=== PATIENT | male | born 1970 | race Caucasian/White ===

== ENCOUNTER 2017-09-13 23:21 | Emergency (ER) | payer MEDICAID, OTHER ==
[~2017-09-13] VITALS: Ht 165.1 cm; Wt 85.7 kg
[~2017-09-13 23:21] MED LIST: ATARAX; MOTRIN; PREDNISONE; SOMA; VICODIN
[2017-09-13 23:25] VITALS: BP 153/90
[2017-09-13] MEDS ORDERED: METOCLOPRAMIDE 10 MG/2 ML INJ VIAL IVP ONE (23:40)
[2017-09-13] MEDS ORDERED: NACL 0.9% 1,000 ML IV ONE (23:40)
[2017-09-13] MEDS ORDERED: KETOROLAC 30 MG/ML VIAL IVP ONE (23:40)
[2017-09-14 00:03] LABS: BASOPHILS # (AUTO) 0.1 K/uL (0.00-0.22); BASOPHILS % (AUTO) 1.2 % (0.0-2.0); EOSINOPHILS # (AUTO) 0.3 K/uL (0-0.4); EOSINOPHILS % (AUTO) 2.5 % (0.0-4.0); HEMATOCRIT 45.6 % (36-52); HEMOGLOBIN 15.9 g/dL (12.0-18.0); LYMPHOCYTES % (AUTO) 36.1 % (20.5-51.1); MEAN CORPUSCULAR HEMOGLOBIN 31 pg (27-31); MEAN CORPUSCULAR HGB CONC 35 g/dL (33-37); MEAN CORPUSCULAR VOLUME 88.9 fL (80-94); MONOCYTES # (AUTO) 0.8 K/uL (0.8-1.0); MONOCYTES % (AUTO) 7.2 % (1.7-9.3); NEUTROPHILS # (AUTO) 5.8 K/uL (1.8-7.7); PLATELET COUNT (AUTO) 261 K/uL (140-450); RED BLOOD CELL COUNT(AUTO) 5.13 MIL/uL (4.20-6.10); RED CELL DISTRIBUTION WIDTH 13.2 % (11.6-13.7)
[2017-09-14 00:12] LABS: ANION GAP 17.6 (8-16); CARBON DIOXIDE 26.2 mmol/L (21-32); POTASSIUM 3.8 mmol/L (3.5-5.1)
[2017-09-14 00:13] LABS: APPEARANCE,URINE CLEAR (CLEAR); BILIRUBIN,URINE NEGATIVE (NEGATIVE); BLOOD, URINE NEGATIVE (NEGATIVE); COLOR,URINE YELLOW (YELLOW); LEUKOCYTE ESTERASE ,URINE NEGATIVE (NEGATIVE); NITRITE, URINE NEGATIVE (NEGATIVE); PH,URINE 6.5 (5.0-9.0); UGLUCOSE NEGATIVE (NEGATIVE)
[2017-09-14 00:18] LABS: ALBUMIN 3.8 g/dL (3.4-5.0); TOTAL BILIRUBIN 0.2 mg/dL (0.0-1.0)
[2017-09-14] MEDS ORDERED: MORPHINE SULFATE 4 MG/ML SYR IVP ONE (00:40)
[2017-09-14 01:59] VITALS: BP 100/52
== END 2017-09-14 01:58 | disposition home or self-care (01) ==
LOC: MED 23:21
DX: K80.20 Calculus of gallbladder without cholecystitis without obstruction (principal); R11.2 Nausea with vomiting, unspecified; K76.89 Other specified diseases of liver; Z79.899 Other long term (current) drug therapy
CPT/HCPCS: 36415; 74176; 76705; 80053; 81003; 83690; 85025; 96361; 96374; 96375; 99285; J1885; J2270; J2765; Q0092

== ENCOUNTER 2017-09-16 00:02 | Emergency (ER) | payer OTHER ==
[~2017-09-16] VITALS: Ht 165.1 cm; Wt 82.7 kg
[2017-09-16 00:05] VITALS: BP 144/92
--- NOTE | 2017-09-16 01:34 | NUR ---
PATIENT LEFT WITHOUT BEING SEEN BY DR. BELLO. NO FURTHER CARE PROVIDED FOR PATIENT.
== END 2017-09-16 01:34 | disposition left against medical advice (07) ==
LOC: MED 00:02
DX: R10.31 Right lower quadrant pain (principal); Z53.21 Procedure and treatment not carried out due to patient leaving prior to being seen by health care provider

== ENCOUNTER 2017-09-18 20:36 | Emergency (ER) | payer OTHER ==
[~2017-09-18] VITALS: Ht 165.1 cm; Wt 82.1 kg
[2017-09-18 20:51] VITALS: BP 145/71
--- NOTE | 2017-09-18 20:54 | NUR ---
TO LOBBY A/W BED, WILLIE HERNANDEZ NOTED
--- NOTE | 2017-09-18 21:13 | NUR ---
PT TAKEN TO BED 3
--- NOTE | 2017-09-18 21:40 | NUR ---
47/M CAME IN ED WITH FAMILY/FRIEND, C/O 11/03 R ABD PAIN, RADIATING THROUGHOUT ABD, X1 WEEK. PT REPORTS N/V. PT REPORTS FEVER, HIGHEST 101 DURING THE WEEK, AFEBRILE AT THIS TIME. PT WAS SEEN 6 DAYS AGO, HAD CT SCAN AND US, WAS FOUND TO HAVE GALLSTONES. PT REPORTS TAKING ADVIL WITH LITTLE RELIEF. HX GALLSTONE, SEIZURE (LAST 5 YEARS AGO), RX DILANTIN. ABD ROUND, BS ACTIVE X4, SOFT, TENDERNESS TO PALPATION; PATIENT POSITIONED FOR COMFORT; HOB ELEVATED; BEDRAILS UP X2; BED DOWN.
[2017-09-18 21:51] LABS: APPEARANCE,URINE CLEAR (CLEAR); BILIRUBIN,URINE NEGATIVE (NEGATIVE); BLOOD, URINE NEGATIVE (NEGATIVE); COLOR,URINE YELLOW (YELLOW); LEUKOCYTE ESTERASE ,URINE NEGATIVE (NEGATIVE); NITRITE, URINE NEGATIVE (NEGATIVE); PH,URINE 5.5 (5.0-9.0); UGLUCOSE NEGATIVE (NEGATIVE)
[2017-09-18] MEDS ORDERED: MORPHINE SULFATE 4 MG/ML SYR IVP ONE (22:00)
[2017-09-18] MEDS ORDERED: METOCLOPRAMIDE 10 MG/2 ML INJ VIAL IVP ONE (22:00)
[2017-09-18] MEDS ORDERED: NACL 0.9% 1,000 ML IV ONE (22:00)
--- NOTE | 2017-09-18 22:15 | NUR ---
US AT BEDSIDE
[2017-09-18 22:29] LABS: BASOPHILS # (AUTO) 0.1 K/uL (0.00-0.22); BASOPHILS % (AUTO) 0.8 % (0.0-2.0); EOSINOPHILS # (AUTO) 0.3 K/uL (0-0.4); EOSINOPHILS % (AUTO) 3.2 % (0.0-4.0); HEMATOCRIT 43.2 % (36-52); HEMOGLOBIN 14.8 g/dL (12.0-18.0); LYMPHOCYTES % (AUTO) 48.6 % (20.5-51.1); MEAN CORPUSCULAR HEMOGLOBIN 31 pg (27-31); MEAN CORPUSCULAR HGB CONC 34 g/dL (33-37); MEAN CORPUSCULAR VOLUME 90.8 fL (80-94); MONOCYTES # (AUTO) 0.8 K/uL (0.8-1.0); MONOCYTES % (AUTO) 8.2 % (1.7-9.3); NEUTROPHILS % (AUTO) 39.2 % (42.2-75.2); PLATELET COUNT (AUTO) 231 K/uL (140-450); RED BLOOD CELL COUNT(AUTO) 4.76 MIL/uL (4.20-6.10); RED CELL DISTRIBUTION WIDTH 13.5 % (11.6-13.7); WHITE BLOOD COUNT (AUTO) 10.2 K/uL (4.8-10.8)
[2017-09-18 22:38] LABS: ANION GAP 14.4 (8-16); POTASSIUM 3.4 mmol/L (3.5-5.1)
[2017-09-18 22:44] LABS: ALBUMIN 3.7 g/dL (3.4-5.0); TOTAL BILIRUBIN 0.3 mg/dL (0.0-1.0)
--- NOTE | 2017-09-18 22:57 | NUR ---
PT RESTING IN BED COMFORTABLY, PT REPORTS DECREASED PAIN 4/10 AT THIS TIME, VSS, ALL NEEDS MET AT THIS TIME.
--- NOTE | 2017-09-18 23:46 | NUR ---
IV ACCESS ON LAC REMOVED AT THIS TIME, PT STATED HE IS FEELING ANXIOUS AND WANTS TO HAVE THE IV OFF.
--- NOTE | 2017-09-19 00:15 | NUR ---
Patient discharged with v/s stable. Written and verbal after care instructions given and explained. Patient alert, oriented and verbalized understanding of instructions. Ambulatory with steady gait. All questions addressed prior to discharge. ID band removed. Patient advised to follow up with PMD. Rx of NORCO 5/325 given. Patient educated on indication of medication including possible reaction and side effects. Opportunity to ask questions provided and answered.
[2017-09-19 01:14] VITALS: BP 110/55
== END 2017-09-19 00:15 | disposition home or self-care (01) ==
LOC: MED 20:36
DX: K80.20 Calculus of gallbladder without cholecystitis without obstruction (principal); E87.6 Hypokalemia
CPT/HCPCS: 36415; 76705; 80053; 81003; 83605; 83690; 85025; 87040; 96361; 96374; 96375; 99285; J2270; J2765; Q0092

== ENCOUNTER 2017-09-28 11:09 | Inpatient (IN) | payer OTHER ==
[~2017-09-28] VITALS: Ht 165.1 cm; Wt 81.6 kg
[2017-09-28 11:12] VITALS: BP 119/68
[2017-09-28] MEDS ORDERED: NACL 0.9% 1,000 ML IV SCH (11:19)
[2017-09-28] MEDS ORDERED: METOCLOPRAMIDE 10 MG/2 ML INJ VIAL IVP ONE (11:20)
[2017-09-28] MEDS ORDERED: GLYCOPYRROLATE 0.2 MG/ML VIAL IV ONE (11:20)
[2017-09-28] MEDS ORDERED: HYDROmorphone PFS 2 MG/ML SYR IVP ONE (11:20)
[2017-09-28] MEDS ORDERED: KETOROLAC 30 MG/ML VIAL IVP ONE (11:20)
[2017-09-28 11:47] LABS: BASOPHILS # (AUTO) 0.1 K/uL (0.00-0.22); BASOPHILS % (AUTO) 0.8 % (0.0-2.0); EOSINOPHILS # (AUTO) 0.2 K/uL (0-0.4); EOSINOPHILS % (AUTO) 2.3 % (0.0-4.0); HEMATOCRIT 48.5 % (36-52); HEMOGLOBIN 16.4 g/dL (12.0-18.0); LYMPHOCYTES # (AUTO) 4.8 K/uL (2.0-11.5); LYMPHOCYTES % (AUTO) 44.2 % (20.5-51.1); MEAN CORPUSCULAR HEMOGLOBIN 31 pg (27-31); MEAN CORPUSCULAR HGB CONC 34 g/dL (33-37); MEAN CORPUSCULAR VOLUME 90.7 fL (80-94); MONOCYTES # (AUTO) 0.8 K/uL (0.8-1.0); MONOCYTES % (AUTO) 7.3 % (1.7-9.3); NEUTROPHILS # (AUTO) 4.9 K/uL (1.8-7.7); NEUTROPHILS % (AUTO) 45.4 % (42.2-75.2); PLATELET COUNT (AUTO) 250 K/uL (140-450); RED BLOOD CELL COUNT(AUTO) 5.35 MIL/uL (4.20-6.10); RED CELL DISTRIBUTION WIDTH 13.6 % (11.6-13.7); WHITE BLOOD COUNT (AUTO) 10.8 K/uL (4.8-10.8)
[2017-09-28 11:48] LABS: APPEARANCE,URINE CLEAR (CLEAR); BILIRUBIN,URINE NEGATIVE (NEGATIVE); BLOOD, URINE NEGATIVE (NEGATIVE); COLOR,URINE YELLOW (YELLOW); LEUKOCYTE ESTERASE ,URINE NEGATIVE (NEGATIVE); NITRITE, URINE NEGATIVE (NEGATIVE); PH,URINE 8.5 (5.0-9.0); UGLUCOSE NEGATIVE (NEGATIVE)
[2017-09-28] MEDS ORDERED: NACL 0.9% 1,000 ML IV ONE (11:55)
[2017-09-28 11:59] LABS: ANION GAP 12.9 (8-16); CARBON DIOXIDE 27.7 mmol/L (21-32); POTASSIUM 3.6 mmol/L (3.5-5.1)
[2017-09-28 12:06] LABS: ALBUMIN 4.3 g/dL (3.4-5.0); TOTAL BILIRUBIN 0.6 mg/dL (0.0-1.0)
[2017-09-28] MEDS ORDERED: MORPHINE SULFATE 2 MG/ML SYR IVP PRN (14:25)
[2017-09-28] MEDS ORDERED: ONDANSETRON 4 MG/2 ML VIAL IVP PRN (14:25)
[2017-09-28 15:00] VITALS: BP 92/44
[2017-09-28] MEDS: NACL 0.9% 1,000 ML IV SCH (15:13)
[2017-09-28 16:00] VITALS: BP 95/58
[2017-09-28] MEDS: KETOROLAC 30 MG/ML VIAL IVP PRN ×2 (17:07→23:28)
[2017-09-29] VITALS: BP 129/77
[2017-09-29] MEDS: NACL 0.9% 1,000 ML IV SCH ×2 (01:15→11:25)
[2017-09-29 06:07] LABS: BASOPHILS # (AUTO) 0.1 K/uL (0.00-0.22); BASOPHILS % (AUTO) 0.5 % (0.0-2.0); EOSINOPHILS # (AUTO) 0.3 K/uL (0-0.4); EOSINOPHILS % (AUTO) 2.5 % (0.0-4.0); HEMOGLOBIN 14.3 g/dL (12.0-18.0); LYMPHOCYTES # (AUTO) 3.9 K/uL (2.0-11.5); LYMPHOCYTES % (AUTO) 34.9 % (20.5-51.1); MEAN CORPUSCULAR HEMOGLOBIN 30 pg (27-31); MEAN CORPUSCULAR HGB CONC 33 g/dL (33-37); MEAN CORPUSCULAR VOLUME 91.1 fL (80-94); MONOCYTES # (AUTO) 0.7 K/uL (0.8-1.0); MONOCYTES % (AUTO) 6.7 % (1.7-9.3); NEUTROPHILS # (AUTO) 6.2 K/uL (1.8-7.7); NEUTROPHILS % (AUTO) 55.4 % (42.2-75.2); PLATELET COUNT (AUTO) 219 K/uL (140-450); RED BLOOD CELL COUNT(AUTO) 4.71 MIL/uL (4.20-6.10); RED CELL DISTRIBUTION WIDTH 13.6 % (11.6-13.7); WHITE BLOOD COUNT (AUTO) 11.2 K/uL (4.8-10.8)
[2017-09-29] MEDS: KETOROLAC 30 MG/ML VIAL IVP PRN (06:44)
[2017-09-29 06:55] LABS: ALBUMIN 3.4 g/dL (3.4-5.0); CARBON DIOXIDE 25.9 mmol/L (21-32); CREATININE 0.9 mg/dL (0.7-1.3); POTASSIUM 3.9 mmol/L (3.5-5.1); TOTAL BILIRUBIN 0.4 mg/dL (0.0-1.0)
[2017-09-29 07:57] VITALS: BP 138/78
[2017-09-29] MEDS: PANTOPRAZOLE 40 MG INJ VIAL IVP SCH ×2 (09:19→21:53)
[2017-09-29] MEDS: HYDROcodone/APAP 5/325 MG 1 TAB TAB PO PRN (16:10)
[2017-09-29] MEDS ORDERED: SUCCINYLCHOLINE CHLORIDE 200 MG/10 ML VIAL IVP ONE (18:45)
[2017-09-29] MEDS ORDERED: KETOROLAC 30 MG/ML VIAL ONE (18:45)
[2017-09-29] MEDS ORDERED: ROCURONIUM 50 MG/5 ML VIAL IV ONE (18:45)
[2017-09-29] MEDS ORDERED: ONDANSETRON 4 MG/2 ML VIAL ONE (18:45)
[2017-09-29] MEDS ORDERED: DEXAMETHASONE 4 MG/ML VIAL ONE (18:45)
[2017-09-29] MEDS ORDERED: SEVOFLURANE 250 ML BTL INH ONE (18:45)
[2017-09-29] MEDS ORDERED: LABETALOL 100 MG/20 ML VIAL ONE (18:45)
[2017-09-29] MEDS ORDERED: PROPOFOL 200 MG/20 ML VIAL IV ONE (18:45)
[2017-09-29] MEDS ORDERED: MIDAZOLAM 2 MG/2 ML VIAL ONE (18:50)
[2017-09-29] MEDS ORDERED: MEPERIDINE 50 MG/ML SYR ONE (18:50)
[2017-09-29] MEDS ORDERED: fentaNYL 0.05 MG/ML VIAL ONE (18:50)
[2017-09-29] MEDS ORDERED: BUPIVACAINE-MPF 0.25% 30 ML VIAL INJ ONE (18:54)
[2017-09-29] MEDS ORDERED: ceFAZolin 1,000 MG VIAL ONE ×2 (18:55→21:50)
[2017-09-29] MEDS: LACTATED RINGERS 1,000 ML IV SCH (19:31)
[2017-09-29] MEDS ORDERED: MEPERIDINE 25 MG/ML SYR IVP PRN (19:35)
[2017-09-29] MEDS ORDERED: ONDANSETRON 4 MG/2 ML VIAL IVP PRN (19:35)
[2017-09-29] MEDS ORDERED: HYDROmorphone 1 MG/ML AMP IVP PRN (19:35)
[2017-09-29] MEDS ORDERED: diphenhydrAMINE 50 MG/ML VIAL IVP PRN (19:35)
[2017-09-29] MEDS ORDERED: AMMONIA AROMATIC 1 INHL INH ONE (20:58)
[2017-09-30] VITALS: BP 108/62
[2017-09-30] MEDS: HYDROcodone/APAP 5/325 MG 1 TAB TAB PO PRN (02:05)
[2017-09-30] MEDS: LACTATED RINGERS 1,000 ML IV SCH (03:51)
[2017-09-30] MEDS ORDERED: ceFAZolin 1,000 MG VIAL ONE (04:08)
[2017-09-30] MEDS: NACL 0.9% 1,000 ML IV SCH (04:24)
[2017-09-30 07:17] LABS: HEMATOCRIT 40.7 % (36-52); HEMOGLOBIN 13.6 g/dL (12.0-18.0); LYMPHOCYTES # (AUTO) 1.1 K/uL (2.0-11.5); LYMPHOCYTES % (AUTO) 12.2 % (20.5-51.1); MEAN CORPUSCULAR HEMOGLOBIN 31 pg (27-31); MEAN CORPUSCULAR HGB CONC 33 g/dL (33-37); MEAN CORPUSCULAR VOLUME 91.5 fL (80-94); MONOCYTES # (AUTO) 0.2 K/uL (0.8-1.0); MONOCYTES % (AUTO) 2.3 % (1.7-9.3); NEUTROPHILS % (AUTO) 85.5 % (42.2-75.2); PLATELET COUNT (AUTO) 217 K/uL (140-450); RED BLOOD CELL COUNT(AUTO) 4.45 MIL/uL (4.20-6.10); RED CELL DISTRIBUTION WIDTH 13.3 % (11.6-13.7); WHITE BLOOD COUNT (AUTO) 9.4 K/uL (4.8-10.8)
[2017-09-30 07:36] LABS: ALBUMIN 3.3 g/dL (3.4-5.0); ANION GAP 12.7 (8-16); CARBON DIOXIDE 25.3 mmol/L (21-32); TOTAL BILIRUBIN 0.3 mg/dL (0.0-1.0)
[2017-09-30 07:46] VITALS: BP 95/65
[2017-09-30] MEDS: PANTOPRAZOLE 40 MG INJ VIAL IVP SCH (08:56)
[2017-09-30] MEDS ORDERED: ACET-5629 PO (09:36)
[2017-09-30] MEDS ORDERED: CEFAZOLIN SODIUM 1 GM/D5W PM 50 ML IV SCH (13:00)
== END 2017-09-30 10:00 | disposition home or self-care (01) | DRG 263 ==
LOC: MED 11:09 → MTU 14:36 → OBSVTOIN 09-30 09:20
PROVIDERS: ADMIT Internal Medicine; ATTEND Internal Medicine
PROC: 0FT44ZZ Resection of Gallbladder, Percutaneous Endoscopic Approach (ICD-10-PCS; principal; 2017-09-28)
DX: K80.60 Calculus of gallbladder and bile duct with cholecystitis, unspecified, without obstruction (principal); D18.09 Hemangioma of other sites; E86.0 Dehydration
CPT/HCPCS: 96361; 96374; 96375; 99285; G0378; 36415; 71045; 76705; 80053; 81003; 82150; 82374; 82977; 83690; 85025; 86886; 86900; 86901; 87081; 88304; C9113; J0330; J0690; J1100; J1170; J1885; J2175; J2250; J2270; J2405; J2704; J2765; J3010; J3490; J7030; J7060; Q0092; Q9967

== ENCOUNTER 2023-05-18 12:08 | Emergency (ER) | payer OTHER ==
[~2023-05-18] VITALS: Ht 165.1 cm; Wt 73.9 kg
[~2023-05-18 12:08] MED LIST changes: +ACET-5629 PO; -ATARAX; -MOTRIN; -PREDNISONE; -SOMA; -VICODIN
[2023-05-18 12:24] VITALS: BP 122/78; PULSE 72; RESP 19; TEMP 98.4; O2SAT 99
[2023-05-18] MEDS: ASPIRIN 81 MG TAB.CHEW PO ONE (14:36)
[2023-05-18 14:59] LABS: BASOPHILS # (AUTO) 0.1 K/uL (0.00-0.22); EOSINOPHILS # (AUTO) 0.4 K/uL (0-0.4); EOSINOPHILS % (AUTO) 4.3 % (0.0-4.0); HEMATOCRIT 42.9 % (36-52); LYMPHOCYTES # (AUTO) 3.6 K/uL (2.0-11.5); LYMPHOCYTES % (AUTO) 38.5 % (20.5-51.1); MEAN CORPUSCULAR HEMOGLOBIN 32 pg (27-31); MEAN CORPUSCULAR HGB CONC 35 g/dL (33-37); MEAN CORPUSCULAR VOLUME 90.8 fL (80-94); MONOCYTES # (AUTO) 0.8 K/uL (0.8-1.0); MONOCYTES % (AUTO) 8.7 % (1.7-9.3); NEUTROPHILS # (AUTO) 4.4 K/uL (1.8-7.7); NEUTROPHILS % (AUTO) 47.5 % (42.2-75.2); PLATELET COUNT (AUTO) 247 K/uL (140-450); RED BLOOD CELL COUNT(AUTO) 4.72 MIL/uL (4.20-6.10); RED CELL DISTRIBUTION WIDTH 13.5 % (11.6-13.7); WHITE BLOOD COUNT (AUTO) 9.2 K/uL (4.8-10.8)
[2023-05-18 15:10] LABS: ANION GAP 13.1 (8-16); CALCIUM 8.8 mg/dL (8.5-10.1); CARBON DIOXIDE 25.9 mmol/L (21-32); CREATININE 0.8 mg/dL (0.6-1.3)
[2023-05-18 15:42] VITALS: BP 114/62; PULSE 68; RESP 17; TEMP 96.9; O2SAT 97
== END 2023-05-18 15:48 | disposition home or self-care (01) ==
LOC: MED 12:08
DX: R07.89 Other chest pain (principal); R11.2 Nausea with vomiting, unspecified; Z79.899 Other long term (current) drug therapy
CPT/HCPCS: 36415; 71045; 80048; 83880; 84484; 85025; 93005; 99285

== ENCOUNTER 2023-10-02 19:02 | Emergency (ER) | payer OTHER ==
[~2023-10-02] VITALS: Ht 165.1 cm; Wt 74.2 kg
[2023-10-02 19:11] VITALS: BP 119/75; PULSE 77; RESP 16; TEMP 97.9; O2SAT 98
[2023-10-02 21:17] VITALS: BP 125/78; PULSE 79; RESP 18; TEMP 98.1; O2SAT 98
== END 2023-10-02 21:24 | disposition left against medical advice (07) ==
LOC: MED 19:02
DX: R22.31 Localized swelling, mass and lump, right upper limb (principal); M25.521 Pain in right elbow; Z53.21 Procedure and treatment not carried out due to patient leaving prior to being seen by health care provider

== ENCOUNTER 2023-10-04 09:27 | Emergency (ER) | payer OTHER ==
[~2023-10-04] VITALS: Ht 165.1 cm; Wt 73.5 kg
[2023-10-04 09:49] VITALS: BP 126/82; PULSE 53; RESP 16; TEMP 97.1; O2SAT 97
[2023-10-04] MEDS ORDERED: IBUP-2213 PO (10:21)
== END 2023-10-04 10:32 | disposition home or self-care (01) ==
LOC: MED 09:27
DX: M70.21 Olecranon bursitis, right elbow (principal); Z79.899 Other long term (current) drug therapy
CPT/HCPCS: 99282